=== PATIENT | male | born 1955 | race Caucasian/White ===

== ENCOUNTER 2020-02-26 05:19 | Emergency (ER) | payer MEDICAID ==
[2020-02-26] MEDS ORDERED: SODIUM CHLORIDE 0.9% 1000ML 1,000 ML IVS ONE (05:36)
[2020-02-26] MEDS ORDERED: SODIUM CHLORIDE 0.9% (FLUSH) 10 ML SYG IV PRN (05:36)
--- NOTE | 2020-02-26 05:52 | ED.PDOC ---
History of Present Illness - General Time Seen by Provider: 02/26/20 05:36 Source: patient, RN notes reviewed, Vital Signs reviewed, EMS notes reviewed Exam Limitations: no limitations - History of Present Illness Initial Comments: Patient is a 64-year-old white male who comes from [facility] with complaints of altered mental status and confusion. Patient was found wandering the floors. Patient states she has a mild cough and no other complaints. Patient answers all questions here. Timing/Duration: 1-3 hours Severity: moderate Improving Factors: nothing Worsening Factors: nothing Associated Symptoms: cough Allergies/Adverse Reactions: Allergies NO KNOWN ALLERGY Allergy (Verified 02/26/20 05:25) Home Medications: Ambulatory Orders Atorvastatin Calcium 40 mg PO DAILY 02/26/20 Cyclobenzaprine HCl [Flexeril] 10 mg PO BID 02/26/20 Fluticasone/Salmeterol 250/50 [Advair 250/50 Diskus] BID 02/26/20 Human Insulin Aspart [Novolog] 100 unit SC BEDTIME 02/26/20 Hydrochlorothiazide 12.5 mg PO DAILY 02/26/20 Insulin Detemir [Levemir] 25 unit SUBCU DAILY 02/26/20 Losartan Potassium 100 mg PO DAILY 02/26/20 Metformin HCl [Fortamet] 500 mg BID 02/26/20 Thiamine HCl 100 mg DAILY 02/26/20 glipiZIDE [Glucotrol] 5 mg PO BID 02/26/20 Review of Systems - Review of Systems Constitutional: States: no symptoms reported, see HPI. Denies: chills, fever, malaise, weakness EENTM: States: no symptoms reported. Denies: eye pain, blurred vision, double vision, mouth pain Respiratory: States: see HPI, cough. Denies: orthopnea, short of breath, stridor, wheezing Cardiology: States: no symptoms reported. Denies: chest pain, palpitations, syncope Gastrointestinal/Abdominal: States: no symptoms reported. Denies: abdominal pain, diarrhea, nausea, vomiting Genitourinary: States: no symptoms reported Musculoskeletal: States: no symptoms reported. Denies: back pain, joint pain, neck pain Skin: States: no symptoms reported. Denies: change in color, rash Neurological: States: see HPI, other - Confusion. Denies: numbness, paresthesia, weakness Endocrine: States: no symptoms reported Hematologic/Lymphatic: States: no symptoms reported All other Systems: No Change from Baseline Family Medical History - Family History Mother Family History: Unknown Physical Exam - Physical Exam General Appearance: Alert, Comfortable, No apparent distress, Well Developed, Well Groomed, Well Hydrated, Well Nourished Eye Exam: bilateral normal Ears, Nose, Throat: hearing grossly normal, normal ENT inspection, normal pharynx Neck: non-tender, full range of motion, supple Respiratory: chest non-tender, lungs clear, normal breath sounds, no respiratory distress, no accessory muscle use Cardiovascular/Chest: normal peripheral pulses, no edema, no gallop, no JVD, no murmur, tachycardia Peripheral Pulses: radial,right: 2+, radial,left: 2+ Gastrointestinal/Abdominal: normal bowel sounds, non tender, soft Back Exam: normal inspection, no CVA tenderness, no vertebral tenderness Extremity: normal range of motion, non-tender, normal inspection, no pedal edema 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 02/26/20 06:52 Patient is woken up and is no longer confused. Laboratory work is unremarkable. He is got a mild tachycardia. This is improved since arrival and IV fluids. Plan on discharge back to the [facility] for further care. Brennen Landa M.D. #[id number] - Results/Orders Results/Orders: EKG performed 26 February 2020 at 0546 hrs.: Sinus tachycardia at 119 bpm, normal axis deviation, no ST or T wave changes, otherwise normal EKG. No comparison EKG available at this time. 02/26/20 05:36 Sodium Chloride 0.9% (Flush) [Saline Flush Syringe] 10 ml IV PRN PRN Sodium Chloride 0.9% 1000ML [Ns 1000 ml] 1,000 ml IVS ONCE 02/26/20 05:37 IV Care:Saline Lock per Protoc QSHIFT EKG Assessment ONCE 02/26/20 05:45 EKG STAT 02/26/20 06:22 Chest,1 View [RAD] Stat Laboratory Results - last 24 hr 02/26/20 02/26/20 02/26/20 05:40 05:40 05:41 WBC 13.4 H RBC 4.84 Hgb 13.5 L Hct 40.3 L MCV 83.4 MCH 27.8 MCHC 33.4 RDW 14.7 H Plt Count 275 MPV 8.5 Absolute Neuts (auto) 9.10 H Absolute Lymphs (auto) 1.50 Absolute Monos (auto) 1.80 H Absolute Eos (auto) 0.90 H Absolute Basos (auto) 0.00 Neutrophils % 68.4 Lymphocytes % 11.4 L Monocytes % 13.1 H Eosinophils % 6.7 H Basophils % 0.4 Sodium 135 Potassium 4.6 Chloride 103 Carbon Dioxide 22 Anion Gap 14.6 BUN 27 H Creatinine 1.25 BUN/Creatinine Ratio 21.6 H Random Glucose 357 H Serum Osmolality 289.6 Calcium 9.3 Total Bilirubin 0.7 Direct Bilirubin 0.1 Indirect Bilirubin 0.6 AST 33 ALT 47 Alkaline Phosphatase 93 Serum Total Protein 7.5 Albumin 3.7 Lipase 93 H Urine Color Yellow Urine Appearance Clear Urine pH 5.5 Ur Specific [place] 1.025 Urine Protein Negative Urine Glucose (UA) 500 H Urine Ketones Trace Urine Blood Negative Urine Nitrite Negative Urine Bilirubin Negative Urine Urobilinogen 0.2 Ur Leukocyte Esterase Negative Urine RBC 0 Urine WBC 0-1 Ur Epithelial Cells 0 Urine Bacteria 0 EXAM DESCRIPTION: Chest,1 View CLINICAL HISTORY: AMS/confusion COMPARISON: None. FINDINGS: Single frontal view of the chest. Cardiomediastinal silhouette: Normal size and contour. Lungs: No consolidation, pneumothorax, or pleural effusion. Bones: Degenerative change of the spine. Leads overlie the chest. Upper abdomen: No abnormality identified. IMPRESSION: 1. No acute pulmonary process identified. Electronically signed by: Vikram Mcclelland 02/26/2020 6:46 AM Departure - Departure Clinical Impression: Hyperglycemia, Dehydration, Anemia Time of Disposition: 06:53 Disposition: Discharge to Home or Self Care Condition: Good Departure Forms: ED Discharge - Pt. Copy, Patient Portal Self Enrollment Instructions: Dehydration, Adult (DC), Delirium (Confusion) (DC) Diet: resume usual diet Activity: increase activity as tolerated Referrals: Kenneth Hobbs MD [Primary Care Provider] - 1-5 Days Home Medications: Ambulatory Orders Atorvastatin Calcium 40 mg PO DAILY 02/26/20 Cyclobenzaprine HCl [Flexeril] 10 mg PO BID 02/26/20 Fluticasone/Salmeterol 250/50 [Advair 250/50 Diskus] BID 02/26/20 Human Insulin Aspart [Novolog] 100 unit SC BEDTIME 02/26/20 Hydrochlorothiazide 12.5 mg PO DAILY 02/26/20 Insulin Detemir [Levemir] 25 unit SUBCU DAILY 02/26/20 Losartan Potassium 100 mg PO DAILY 02/26/20 Metformin HCl [Fortamet] 500 mg BID 02/26/20 Thiamine HCl 100 mg DAILY 02/26/20 glipiZIDE [Glucotrol] 5 mg PO BID 02/26/20
[2020-02-26 06:39] VITALS: TEMP 99.6
--- NOTE | 2020-02-26 06:47 | RAD ---
EXAM DESCRIPTION: Chest,1 View CLINICAL HISTORY: AMS/confusion COMPARISON: None. FINDINGS: Single frontal view of the chest. Cardiomediastinal silhouette: Normal size and contour. Lungs: No consolidation, pneumothorax, or pleural effusion. Bones: Degenerative change of the spine. Leads overlie the chest. Upper abdomen: No abnormality identified. IMPRESSION: 1. No acute pulmonary process identified. Electronically signed by: Vikram Mcclelland 02/26/2020 6:46 AM CDT
[2020-02-26 07:15] VITALS: BP 148/86; O2SAT 97
== END 2020-02-26 07:27 | disposition home or self-care (01) ==
LOC: ER 05:19
DX: R73.9 Hyperglycemia, unspecified (principal); E86.0 Dehydration; D64.9 Anemia, unspecified; R00.0 Tachycardia, unspecified; R41.82 Altered mental status, unspecified; Z79.899 Other long term (current) drug therapy
CPT/HCPCS: 36415; 71045; 80048; 80076; 81001; 83690; 85025; 93005; A4216; J7030